=== PATIENT | female | born 1965 | race African-American/Black ===

== ENCOUNTER 2020-03-15 22:48 | Emergency (ER) | payer OTHER ==
[2020-03-15 23:09] VITALS: BP 146/76; PULSE 84; TEMP 98.1; BMI 30.7
== END 2020-03-16 00:19 | disposition home or self-care (01) ==
LOC: FER 22:48
DX: R22.42 Localized swelling, mass and lump, left lower limb (principal); S86.012A Strain of left Achilles tendon, initial encounter
CPT/HCPCS: 93971-TC; 99284-25